=== PATIENT | female | born 1935 | race Caucasian/White ===

== ENCOUNTER 2021-03-20 13:00 | Emergency (ER) | payer OTHER ==
[~2021-03-20] VITALS: Ht 152.4 cm; Wt 55.2 kg
[2021-03-20 15:30] VITALS: BP 161/71
== END 2021-03-20 15:30 | disposition home or self-care (01) ==
LOC: M.ERS 13:00
DX: S00.83XA Contusion of other part of head, initial encounter (principal); Z88.1 Allergy status to other antibiotic agents; Z88.0 Allergy status to penicillin; W18.39XA Other fall on same level, initial encounter; Y93.41 Activity, dancing; Y92.89 Other specified places as the place of occurrence of the external cause; Y99.8 Other external cause status

== ENCOUNTER 2021-05-30 06:11 | Emergency (ER) | payer OTHER ==
[~2021-05-30] VITALS: Ht 152.4 cm; Wt 49.0 kg
[2021-05-30 07:33] LABS: URINE BILIRUBIN NEGATIVE (Negative); URINE BLOOD NEGATIVE (Negative); URINE CLARITY CLEAR; URINE COLOR YELLOW; URINE GLUCOSE-RANDOM NEGATIVE (Negative); URINE KETONES NEGATIVE (Negative); URINE LEUKOCYTES-REFLEX TRACE (Negative); URINE NITRITE-REFLEX POSITIVE (Negative); URINE PROTEIN NEGATIVE (Negative); URINE UROBILINOGEN 0.2 E.U./dl (0.2-1.0)
[2021-05-30] MEDS ORDERED: DOXYCYCLINE 10100 M2 PO (07:38)
[2021-05-30] MEDS ORDERED: HYDROCODON-ACE1 EAC7 PO (07:38)
[2021-05-30] MEDS ORDERED: TRANSDERM-SCOP1 EACH TRANSDERM (07:38)
[2021-05-30 08:30] LABS: CASTS None Seen /LPF (None Seen); CRYSTALS None Seen /LPF (None Seen); SQUAMOUS 0-3 Few /LPF (0-3); URINE RBC 0-2 Rare /HPF (0-2); URINE WBC-REFLEX 0-5 Rare /HPF (0-5)
[2021-05-30 08:34] VITALS: BP 143/61
--- NOTE | 2021-05-30 09:41 | EKG ---
[place] [address] ELECTROCARDIOGRAM REPORT Name: JOHNCATALINA ROLLINSMERYL Room: [facility]#: [id number] Admission: 05/30/21 Attend Phys: Discharge: 05/30/21 Date of : [birth year] Date of Service: 05/30/21610 Report #: [id number] THIS REPORT FOR: //name// [facility] ED Test Date: 2021-05-30 Test Time: 06:11:45 Pat Name: MERYL ROLLINS Department: Room: Gender: F [employer]: : [id number] Requested By: Vanessa Flores Order Number: [id number] MD: Giovany Billings Measurements Intervals [place] Rate: 63 P: 8 AL: 176 QRS: -29 QRSD: 88 T: 24 QT: 418 QTc: 428 Interpretive Statements Sinus rhythm Left ventricular hypertrophy No previous ECG available for comparison Electronically Signed On 05-30-2021 9:41:51 CDT by Giovany Billings [email or web address] <ELECTRONICALLY SIGNED> By: Giovany Billings MD, [facility] [id number] 0 Giovany Billings MD, [facility] /EPI
== END 2021-05-30 08:37 | disposition home or self-care (01) ==
LOC: M.ERS 06:11
PROVIDERS: Personal Emergency Response Attendant
DX: S22.049A Unspecified fracture of fourth thoracic vertebra, initial encounter for closed fracture (principal); S22.059A Unspecified fracture of T5-T6 vertebra, initial encounter for closed fracture; S00.03XA Contusion of scalp, initial encounter; N39.0 Urinary tract infection, site not specified; M54.6 Pain in thoracic spine; M54.5 Low back pain; R42 Dizziness and giddiness; Z90.711 Acquired absence of uterus with remaining cervical stump; Z98.890 Other specified postprocedural states; Z96.659 Presence of unspecified artificial knee joint; Z88.1 Allergy status to other antibiotic agents; Z88.0 Allergy status to penicillin; W19.XXXA Unspecified fall, initial encounter; Y93.89 Activity, other specified; Y92.89 Other specified places as the place of occurrence of the external cause; Y99.8 Other external cause status